=== PATIENT | male | born 1955 | race Caucasian/White ===

== ENCOUNTER 2020-07-17 13:53 | Inpatient (IN) | payer MEDICARE, SELFPAY ==
[~2020-07-17] VITALS: Ht 180.3 cm; Wt 115.7 kg
[2020-07-17 14:21] VITALS: BP 135/83
--- NOTE | 2020-07-17 14:21 | NUR ---
Patient to overflow tent.
--- NOTE | 2020-07-17 15:15 | NUR ---
KAYLA Salamanca is evaluating the patient.
[2020-07-17] MEDS ORDERED: AZITHROMYCIN 500 MG in DEXTROSE 5% 250 ML IV ONE (16:25)
[2020-07-17] MEDS ORDERED: DEXAMETHASONE 4 MG/ML VIAL IVP ONE (16:25)
[2020-07-17] MEDS ORDERED: cefTRIAXone 1,000 MG VIAL ONE (17:02)
[2020-07-17 17:11] LABS: BASOPHILS % (AUTO) 0.1 % (0.0-2.0); HEMATOCRIT 40.4 % (36-52); HEMOGLOBIN 14.1 g/dL (12.0-18.0); LYMPHOCYTES # (AUTO) 0.5 K/uL (2.0-11.5); LYMPHOCYTES % (AUTO) 6.3 % (20.5-51.1); MEAN CORPUSCULAR HEMOGLOBIN 31 pg (27-31); MEAN CORPUSCULAR HGB CONC 35 g/dL (33-37); MEAN CORPUSCULAR VOLUME 87.9 fL (80-94); MONOCYTES # (AUTO) 0.2 K/uL (0.8-1.0); MONOCYTES % (AUTO) 3.2 % (1.7-9.3); NEUTROPHILS # (AUTO) 6.8 K/uL (1.8-7.7); NEUTROPHILS % (AUTO) 90.4 % (42.2-75.2); PLATELET COUNT (AUTO) 206 K/uL (140-450); RED CELL DISTRIBUTION WIDTH 13.9 % (11.6-13.7); WHITE BLOOD COUNT (AUTO) 7.5 K/uL (4.8-10.8)
[2020-07-17 17:33] LABS: ALBUMIN 3.3 g/dL (3.4-5.0); ANION GAP 12.7 (8-16); CARBON DIOXIDE 27.1 mmol/L (21-32); POTASSIUM 3.8 mmol/L (3.5-5.1); TOTAL BILIRUBIN 0.9 mg/dL (0.0-1.0)
[2020-07-17] MEDS ORDERED: AZITHROMYCIN 500 MG INJ VIAL IV ONE (17:41)
[2020-07-17] MEDS ORDERED: MAGNESIUM OXIDE 400 MG TAB PO PRN (17:50)
[2020-07-17] MEDS ORDERED: ACETAMINOPHEN 325 MG TAB PO PRN (17:50)
[2020-07-17] MEDS ORDERED: POTASSIUM CHLORIDE 10 MEQ TABER PO PRN (17:50)
[2020-07-17] MEDS ORDERED: METOCLOPRAMIDE 10 MG/2 ML INJ VIAL IVP PRN (17:50)
[2020-07-17] MEDS ORDERED: PHARMACY TO DOSE MC PRN (17:55)
[2020-07-17] MEDS ORDERED: REMDESIVIR (EUA) 200 MG in NACL 0.9% 100 ML IV ONE (18:30)
[2020-07-17] MEDS ORDERED: remdesivir CLINICAL MONITORING 1 EA MISC MC PRN (18:30)
--- NOTE | 2020-07-17 19:30 | NUR ---
Patient will be admitted to care of CYRUS CHEEMA. Admited to M/S HOLD, AT 1751 HOURS. Belongings list completed.
--- NOTE | 2020-07-18 07:19 | NUR ---
PATIENT HAS BEEN SCREENED AND CATEGORIZED MODERATE NUTRITION RISK. PATIENT WILL BE SEEN WITHIN 3-5 DAYS OF ADMISSION. 07/20/20 - 07/22/20 SHIVAM GREEN MBA, RD
[2020-07-18] MEDS: ENOXAPARIN 40 MG/0.4 ML SYR SUBQ SCH (10:26)
[2020-07-18] MEDS: DEXAMETHASONE 4 MG TAB PO SCH (10:33)
--- NOTE | 2020-07-18 10:44 | NUR ---
Remdesevir not given last night to patient. Pharmacy made aware.
--- NOTE | 2020-07-18 11:30 | NUR ---
RECEIVED PATIENT FROM PREVIOUS SHIFT SITTING ON THE CHAIR, AWAKE,ALERT, BREATHING SPONTANEOUSLY WITH O2 AT 6L/MIN VIA NC, NOT IN DISTRESS NOTED. ADMITTED A CASE OF COVID POSITIVE UNDER DR. MURDOCK, CONTINUE MONITOR
--- NOTE | 2020-07-18 11:30 | NUR ---
SOCIAL WORK NOTE: Patient's Orientation Unable To Assess Information Provided By OPHELIA FOLEY - Comments SW WAS UNABLE TO MEET PATIENT AT BEDSIDE. SW COMPLETED ASSESSMENT WITH PATIENT'S . [employer], Realtionship and Phone Number OPHELIA CROWDER [phone] Healthcare Power of Senior [employer] Does Patient Have a POLST No Identifying Problems No Social Work Triggers Is A Social Work Consult Needed No Mandate Report Filed No Explanation Of Identifying Problems PATIENT IS A 64-YEAR-OLD MALE ADMITTED FOR COVID. PATIENT HAS PMHX OF DIABETES. NO HX OF SUBSTANCE ABUSE OR MENTAL HEALTH WAS REPORTED. Admitted From Home Pre-Admission Level Of Functioning Status Independent/Ambulatory Prior Resources/Services Used In Last 12 Months No Prior Resources Used Prior DME No Prior DME Used Dialysis Comments N/A Living Situation Lives With Family House Patient Had Caregiver No Home Support No Caregiver Issues Financial Issues No Known Financial Issue Referral To The Financial Counselor Needed No Factors/Needs No D/C Needs Identified Pt/Rep Participated In Discharge Plan Yes Patient/Family Agress With Discharge Plan Yes Discharge Plan Comments TENTATIVE DISCHARGE PLAN IS FOR PATIENT TO RETURN HOME. DC Plan Status Initiated
[2020-07-18 11:59] LABS: BASOPHILS % (AUTO) 0.2 % (0.0-2.0); HEMATOCRIT 40.9 % (36-52); HEMOGLOBIN 14.1 g/dL (12.0-18.0); LYMPHOCYTES # (AUTO) 0.5 K/uL (2.0-11.5); LYMPHOCYTES % (AUTO) 6.2 % (20.5-51.1); MEAN CORPUSCULAR HEMOGLOBIN 31 pg (27-31); MEAN CORPUSCULAR HGB CONC 34 g/dL (33-37); MEAN CORPUSCULAR VOLUME 88.7 fL (80-94); MONOCYTES # (AUTO) 0.3 K/uL (0.8-1.0); NEUTROPHILS # (AUTO) 7.3 K/uL (1.8-7.7); NEUTROPHILS % (AUTO) 89.6 % (42.2-75.2); PLATELET COUNT (AUTO) 225 K/uL (140-450); RED BLOOD CELL COUNT(AUTO) 4.61 MIL/uL (4.20-6.10); RED CELL DISTRIBUTION WIDTH 13.9 % (11.6-13.7); WHITE BLOOD COUNT (AUTO) 8.2 K/uL (4.8-10.8)
[2020-07-18 12:00] VITALS: BP 132/71
[2020-07-18 12:12] LABS: ALBUMIN 3.2 g/dL (3.4-5.0); CARBON DIOXIDE 28.2 mmol/L (21-32); POTASSIUM 4.2 mmol/L (3.5-5.1); TOTAL BILIRUBIN 0.8 mg/dL (0.0-1.0)
--- NOTE | 2020-07-18 12:23 | NUR ---
LUNCH SERVED AND ABLE TO FEED HIMSELF
--- NOTE | 2020-07-18 13:22 | NUR ---
OPHELIA CONTACTED AND UPDATE PATIENT STATUS
--- NOTE | 2020-07-18 16:16 | NUR ---
STILL ON O2 AT 12L/MIN VIA NC, NOT IN DISTRESS NOTED
[2020-07-18] MEDS ORDERED: REMDESIVIR (EUA) 100 MG in NACL 0.9% 100 ML IV SCH (17:00)
--- NOTE | 2020-07-18 17:15 | NUR ---
DUE REMDESIVIR IVPB NON ADMINISTER, PER THE CHARGE IS NOT SAFE TO GIVE THE SAID MEDICATION, NO ONE WILL MONITOR OUTSIDE THE TENT, PANTS MAKER AND PHARMACY MADE AWARE.
[2020-07-18 18:00] VITALS: BP 126/77
--- NOTE | 2020-07-18 19:30 | NUR ---
ENDORSED TO PRISONER CLASSIFICATION INTERVIEWER CHARGE NURSE IN STABLE CONDITION FOR CONTINUITY OF CARE
--- NOTE | 2020-07-18 23:02 | NUR ---
Patient is sitting quietly in tent. No distress noted. VSS
[2020-07-18] MEDS ORDERED: DEXTROSE 50% 50 ML SYR IVP PRN (23:15)
--- NOTE | 2020-07-19 01:00 | NUR ---
patient resting in chair quietly.
--- NOTE | 2020-07-19 03:00 | NUR ---
Patient is resting in chair with eyes closed. A/ox4; no distress noted.
--- NOTE | 2020-07-19 05:09 | NUR ---
179 mg/dl blood sugar/
--- NOTE | 2020-07-19 05:21 | NUR ---
Spoke with Blood bank/lab; convalescent plasma will be ready in an hour.
--- NOTE | 2020-07-19 06:18 | NUR ---
Convalescent plasma not ready.
[2020-07-19] MEDS: BLOOD GLUCOSE MONITORING 1 DEV DEV FS SCH ×4 (07:30→21:56)
--- NOTE | 2020-07-19 07:37 | NUR ---
INFLUENZA A+B; NOVEL; AND MRSA TAKEN TO LAB
--- NOTE | 2020-07-19 07:43 | NUR ---
Patient will be admitted to care of Dr. Vazquez. Admited to Med/Surg. Will go to room 105-A. Belongings list completed. Report to Falguni MANZANARES.
[2020-07-19] MEDS: ALBUTEROL SULFATE/IPRATROPIU 3 ML SOL IH SCH ×2 (08:04→19:00)
--- NOTE | 2020-07-19 08:10 | NUR ---
Patient admitted to room 105A from ED via wheelchair. Received report from ED nurse Morenita. Patient is aaox 4, respirations even & nonlabored on O2 @ 8Lpm. Pt able to ambulate from wheelchair to bed with steady gait. Oriented to room and unit, able to demonstrate understanding of teachings. Call light placed within reach.
[2020-07-19] MEDS: DEXAMETHASONE 4 MG TAB PO SCH (08:25)
[2020-07-19] MEDS: ENOXAPARIN 40 MG/0.4 ML SYR SUBQ SCH (08:26)
[2020-07-19 09:00] VITALS: BP 140/86
[2020-07-19 10:42] LABS: BASOPHILS % (AUTO) 0.1 % (0.0-2.0); HEMATOCRIT 39.4 % (36-52); HEMOGLOBIN 13.8 g/dL (12.0-18.0); LYMPHOCYTES # (AUTO) 0.6 K/uL (2.0-11.5); LYMPHOCYTES % (AUTO) 8.6 % (20.5-51.1); MEAN CORPUSCULAR HEMOGLOBIN 31 pg (27-31); MEAN CORPUSCULAR HGB CONC 35 g/dL (33-37); MEAN CORPUSCULAR VOLUME 88.3 fL (80-94); MONOCYTES # (AUTO) 0.4 K/uL (0.8-1.0); MONOCYTES % (AUTO) 5.8 % (1.7-9.3); NEUTROPHILS # (AUTO) 5.7 K/uL (1.8-7.7); NEUTROPHILS % (AUTO) 85.5 % (42.2-75.2); PLATELET COUNT (AUTO) 258 K/uL (140-450); RED BLOOD CELL COUNT(AUTO) 4.46 MIL/uL (4.20-6.10); RED CELL DISTRIBUTION WIDTH 13.8 % (11.6-13.7); WHITE BLOOD COUNT (AUTO) 6.6 K/uL (4.8-10.8)
[2020-07-19 11:12] LABS: ANION GAP 10.4 (8-16); CARBON DIOXIDE 29.6 mmol/L (21-32); TOTAL BILIRUBIN 0.8 mg/dL (0.0-1.0)
[2020-07-19] MEDS: INSULIN LISPRO SLIDING SCALE 100 UNITS/ML VIAL SUBQ PRN ×3 (11:48→22:00)
[2020-07-19] MEDS ORDERED: remdesivir CLINICAL MONITORING 1 EA MISC MC PRN ×2 (11:55→13:00)
[2020-07-19] MEDS ORDERED: METF-430 PO (12:55)
[2020-07-19] MEDS ORDERED: TRI48 PO (12:55)
[2020-07-19] MEDS ORDERED: ATOR20TA PO (12:55)
[2020-07-19] MEDS ORDERED: BENA20TA PO (12:55)
[2020-07-19] MEDS ORDERED: LIRA6SOL SC (12:55)
[2020-07-19] MEDS ORDERED: ASPI-1822 PO (12:55)
[2020-07-19] MEDS ORDERED: REMDESIVIR (EUA) 200 MG in NACL 0.9% 100 ML IV SCH (13:00)
--- NOTE | 2020-07-19 16:05 | NUR ---
Initiated convalescent plasma transfusion @ 50ml/hr. Patient resting in bed in high hawkins's position, no signs of distress, respirations even & nonlabored on O2 @ 7Lpm via n/c. Vital signs: 130/85, P 99, RR 18, T 98.9F. RN remains at bedside for continuous monitoring.
--- NOTE | 2020-07-19 16:11 | NUR ---
Patient admitted to room 105A from ED via wheelchair. Received report from ED nurse Morenita. Patient is aaox 4, respirations even & nonlabored on O2 @ 8Lpm. Pt able to ambulate from wheelchair to bed with steady gait. Oriented to room and unit, able to demonstrate understanding of teachings. Call light placed within reach. Addendum: 07/19/20 at 1759 by Ayah Lowe RN Wrong time input. Pls omit above note.
--- NOTE | 2020-07-19 16:20 | NUR ---
No signs of transfusion reaction noted. Plasma infusion rate increased to 120ml/hr. No signs of complications.
--- NOTE | 2020-07-19 17:40 | NUR ---
Completed convalescent plasma transfusion. No transfusion reactions noted. Pt resting in bed, no signs of distress, respirations even & nonlabored on O2 @ 8Lpm via n/c.
[2020-07-19] MEDS: BUDESONIDE 0.5 MG/2 ML NEBU INH SCH (19:30)
[2020-07-19 20:00] VITALS: BP 129/72
--- NOTE | 2020-07-19 20:00 | NUR ---
A,A&OX4.RESP.UNLABORED W/O2.SL.PATENT.CALL LIGHT IN REACH.CONDITION STABLE.NO DISTRESS NOTED NOW.
[2020-07-20] MEDS: ALBUTEROL SULFATE/IPRATROPIU 3 ML SOL IH SCH ×4 (01:00→19:45)
[2020-07-20 04:00] VITALS: BP 133/87
[2020-07-20] MEDS: BUDESONIDE 0.5 MG/2 ML NEBU INH SCH ×2 (07:30→19:45)
[2020-07-20 08:00] VITALS: BP 113/71
[2020-07-20] MEDS: BLOOD GLUCOSE MONITORING 1 DEV DEV FS SCH ×4 (08:09→21:00)
--- NOTE | 2020-07-20 08:15 | NUR ---
SLEPT WELL.NO DISTRESS NOTED.RESP.UNLABORED W/O2.KR=902.NO COVERAGE NEEDED.
[2020-07-20] MEDS: ENOXAPARIN 40 MG/0.4 ML SYR SUBQ SCH (09:18)
[2020-07-20] MEDS: DEXAMETHASONE 4 MG TAB PO SCH (09:18)
--- NOTE | 2020-07-20 09:19 | NUR ---
SCHEDULED MEDICATIONS DUE GIVEN. WILL CONTINUE TO MONITOR.
[2020-07-20 10:09] LABS: ALBUMIN 2.8 g/dL (3.4-5.0); ANION GAP 8.3 (8-16); CARBON DIOXIDE 30.7 mmol/L (21-32); CREATININE 0.9 mg/dL (0.6-1.3); TOTAL BILIRUBIN 0.7 mg/dL (0.0-1.0)
[2020-07-20 10:11] LABS: BASOPHILS % (AUTO) 0.6 % (0.0-2.0); EOSINOPHILS % (AUTO) 0.1 % (0.0-4.0); HEMATOCRIT 38.4 % (36-52); HEMOGLOBIN 13.3 g/dL (12.0-18.0); LYMPHOCYTES # (AUTO) 0.9 K/uL (2.0-11.5); LYMPHOCYTES % (AUTO) 15.6 % (20.5-51.1); MEAN CORPUSCULAR HEMOGLOBIN 31 pg (27-31); MEAN CORPUSCULAR HGB CONC 35 g/dL (33-37); MEAN CORPUSCULAR VOLUME 89.7 fL (80-94); MONOCYTES # (AUTO) 0.4 K/uL (0.8-1.0); MONOCYTES % (AUTO) 6.2 % (1.7-9.3); NEUTROPHILS # (AUTO) 4.6 K/uL (1.8-7.7); NEUTROPHILS % (AUTO) 77.5 % (42.2-75.2); PLATELET COUNT (AUTO) 294 K/uL (140-450); RED BLOOD CELL COUNT(AUTO) 4.28 MIL/uL (4.20-6.10); RED CELL DISTRIBUTION WIDTH 13.7 % (11.6-13.7)
[2020-07-20] MEDS: REMDESIVIR (EUA) 100 MG in NACL 0.9% 100 ML IV SCH (13:00)
[2020-07-20] MEDS: INSULIN LISPRO SLIDING SCALE 100 UNITS/ML VIAL SUBQ PRN ×3 (13:33→22:53)
--- NOTE | 2020-07-20 14:19 | NUR ---
SCHEDULED MEDICATIONS DUE GIVEN. WILL CONTINUE TO MONITOR.
[2020-07-20] MEDS: POLYETHYLENE GLYCOL 17 GM/PKT PO PRN (14:49)
[2020-07-20 16:00] VITALS: BP 123/80
--- NOTE | 2020-07-20 16:54 | NUR ---
SCHEDULED MEDICATIONS DUE GIVEN. WILL CONTINUE TO MONITOR.
--- NOTE | 2020-07-20 19:16 | NUR ---
GAVE REPORT TO STAVE LOG RIPSAW OPERATOR NURSE FOR CONTINUITY OF CARE. PATIENT IN STABLE CONDITION.
--- NOTE | 2020-07-20 19:35 | NUR ---
AWAKE,ALERT AND ORIENTED.RESP.UNLABORED.CALL LIGHT IN REACH.LUNGS DIMINISHED.NO DISTRESS NOTED NOW.
[2020-07-20 20:00] VITALS: BP 134/76
[2020-07-21 04:00] VITALS: BP 129/75
[2020-07-21] MEDS: BLOOD GLUCOSE MONITORING 1 DEV DEV FS SCH ×4 (04:40→23:06)
--- NOTE | 2020-07-21 07:00 | NUR ---
SLEPT WELL.YE=570.NO COVERAGE NEEDED.CONDITION STABLE.
[2020-07-21] MEDS: BUDESONIDE 0.5 MG/2 ML NEBU INH SCH ×2 (07:30→19:30)
[2020-07-21 08:00] VITALS: BP 146/71
[2020-07-21 08:34] LABS: BASOPHILS % (AUTO) 0.3 % (0.0-2.0); EOSINOPHILS % (AUTO) 0.4 % (0.0-4.0); HEMATOCRIT 39.3 % (36-52); HEMOGLOBIN 13.5 g/dL (12.0-18.0); LYMPHOCYTES # (AUTO) 0.9 K/uL (2.0-11.5); LYMPHOCYTES % (AUTO) 12.7 % (20.5-51.1); MEAN CORPUSCULAR HEMOGLOBIN 31 pg (27-31); MEAN CORPUSCULAR HGB CONC 34 g/dL (33-37); MEAN CORPUSCULAR VOLUME 88.8 fL (80-94); MONOCYTES # (AUTO) 0.3 K/uL (0.8-1.0); MONOCYTES % (AUTO) 4.4 % (1.7-9.3); NEUTROPHILS # (AUTO) 5.7 K/uL (1.8-7.7); NEUTROPHILS % (AUTO) 82.2 % (42.2-75.2); PLATELET COUNT (AUTO) 322 K/uL (140-450); RED BLOOD CELL COUNT(AUTO) 4.43 MIL/uL (4.20-6.10); RED CELL DISTRIBUTION WIDTH 13.6 % (11.6-13.7)
[2020-07-21] MEDS: DEXAMETHASONE 4 MG TAB PO SCH (08:57)
[2020-07-21] MEDS: ENOXAPARIN 40 MG/0.4 ML SYR SUBQ SCH (08:58)
--- NOTE | 2020-07-21 09:02 | NUR ---
SCHEDULED MEDICATIONS GIVEN, EDUCATION PROVIDED. VERBALIZED UNDERSTANDING. DENIES SOB. O2 SAT 89-90% WITH 10L NC WITH HUMIDIFIER. SAFETY MEASURES IN PLACE, CALL LIGHT WITHIN REACH. WILL CONTINUE TO MONITOR.
[2020-07-21 09:27] LABS: ALBUMIN 2.7 g/dL (3.4-5.0); ANION GAP 9.8 (8-16); CREATININE 0.9 mg/dL (0.6-1.3); POTASSIUM 3.8 mmol/L (3.5-5.1); TOTAL BILIRUBIN 0.8 mg/dL (0.0-1.0)
--- NOTE | 2020-07-21 10:17 | NUR ---
PT AWAKE. SITTING IN BED, WITH OCCASIONAL DRY COUGH. DENIES DISCOMFORT. ENCOURAGED PATIENT TO TAKE DEEP BREATH. VERBALIZED UNDERSTANDING. WILL CONTINUE TO MONITOR.
[2020-07-21] MEDS: INSULIN LISPRO SLIDING SCALE 100 UNITS/ML VIAL SUBQ PRN ×3 (12:09→23:13)
--- NOTE | 2020-07-21 12:14 | NUR ---
4 UNITS OF HUMALOG GIVEN FOR BLOOD GLUCOSE LEVEL 226. EDUCATION PROVIDED. INFORMED PATIENT WILL ADMINISTER SCHEDULED REMDESIVIR WHEN IT'S AVAILABLE. NO ACUTE DISTRESS NOTED, WILL CONTINUE TO MONITOR.
[2020-07-21] MEDS: ALBUTEROL SULFATE/IPRATROPIU 3 ML SOL IH SCH ×2 (13:00→19:00)
--- NOTE | 2020-07-21 13:43 | NUR ---
DC PLANNIN YRS OLD MALE PATIENT WAS ADMITTED FROM HOME WITH A DX OF COVID . PCR COVID TEST POSITIVE ON 10L NC SATING 90%. STARTED COVID PROTOCOL DAY #4 OF REMDESIVER , RECEIVED CONVALESCENT PLASMA. CONSULTED WITH ID DR SCHWAB. DC PLAN TO WEAN OF FROM O2 AND DC HOME WHEN STABLE. CM TO FOLLOW Addendum: 07/26/20 at 1231 by Nadege Roman RN DC PLANNING: PT IS STILL ON 13L OXYMIZER SATING 95% SEEN BY ID CONTINUE CURRENT TREATMENT AND TRY TO WEAN OFF O2. DISCUSSED WITH DR BANKS FOR THE RECOMMENDATION FOR [facility] EVAL PER MD TO TRY TO WEAN HIM OFF FIRST .CM TO FOLLOW. Addendum: 07/28/20 at 1651 by Nadege Roman RN DC PLANNING: ON O2 10L/NC SATING 90% DC PLAN TO WEAN OFF O2 TO 5L/NC AND TO GO HOME WITH HOME O2. CM TO FOLLOW Addendum: 07/30/20 at 0953 by Nadege Roman RN DC PLANNING: PT IS STILL ON 10L /NC SATING 90% ID AND PULMO FOLLOWING, PER DR BANKS NOT A CANDIDATE FOR LTAC. DC PLAN TO WEAN OFF OXYGEN TO 5-6L AND SEND HIM HOME WITH HOME O2. CM TO FOLLOW Addendum: 07/31/20 at 1552 by Ayde Stern CM REMAINS ON 02 AT 8 LPM/NC, O2 SAT 92%. PER JUANY - WEAN DOWN 02 TOLERATED. Addendum: 07/31/20 at 1614 by Roxy Avila CM MALORIE NOE: RECEIVED ORDER FOR HOME O2 FAXED TO [facility]. Addendum: 08/01/20 at 921 by Roxy Avila CM MALORIE NOE: FOLLOWED UP WITH [facility] [phone] ext [phone]. THEY ASKED THAT I FAX THEM THE ORDER TO [phone] WILL FOLLOW UP Addendum: 08/01/20 at 0924 by Roxy Avila CM DC MEDIA LIBRARIAN: FOLLOWED UP WITH SHANNAN OLMEDO AT [facility]. HE ASKED THAT I RE-SEND THE ORDER FOR HOME O2 TO HIM. RE-FAXED WILL FOLLOW UP. Addendum: 08/01/20 at 1243 by Roxy Avila CM DC MEDIA LIBRARIAN: FOLLOWED UP WITH SHANNAN OLMEDO REGARDING HOME O2 HE WILL CALL ME BACK BECAUSE HIS COORDINATOR IS ON LUNCH Addendum: 08/01/20 at 1422 by Roxy Avila CM DC MEDIA LIBRARIAN: RECEIVED A CALL BACK FROM SHARA HE STATED THAT HIS COORDINATOR SENT AUTH TO [facility]. FOLLOWED UP WITH [facility] [phone] THEY ARE PROCESSING THIS ORDER NO AVAILABLE ETA AT THIS TIME. Addendum: 08/01/20 at 1556 by Roxy Avila CM MALORIE NOE: SPOKE TO [facility] [phone] OPT 5. HOME O2 WILL BE DELIVERED TO PATIENTS HOME BY 7:15 PM.
[2020-07-21] MEDS: REMDESIVIR (EUA) 100 MG in NACL 0.9% 100 ML IV SCH (13:48)
--- NOTE | 2020-07-21 13:53 | NUR ---
REMDESIVIR GIVEN VIA IVPB. EDUCATION PROVIDED. SAFETY MEASURES IN PLACE. WILL CONTINUE TO MONITOR.
--- NOTE | 2020-07-21 14:10 | NUR ---
+ covid result received from lab. Copy given to infection control
[2020-07-21 16:00] VITALS: BP 110/62
--- NOTE | 2020-07-21 16:48 | NUR ---
6 UNITS OF HUMALOG GIVEN FOR BLOOD GLUCOSE LEVEL 271. EDUCATION PROVIDED. O2 SAT 89-93% WITH 10 L NC WITH HUMIDIFIER. WILL CONTINUE TO MONITOR.
--- NOTE | 2020-07-21 18:06 | NUR ---
INCENTIVE SPIROMETER PROVIDED. INSTRUCTION PROVIDED. PATIENT ABLE TO REACH 2000ML VOLUME. ENCOURAGED PATIENT TO DO 10 TIMES PER HOUR WHILE HE'S AWAKE. PATIENT VERBALIZED UNDERSTANDING. O2 SAT 93% WITH 10L NC WITH HUMIDIFIER. NO ACUTE RESPIRATORY DISTRESS NOTED. SAFETY MEASURES IN PLACE, WILL CONTINUE TO MONITOR.
--- NOTE | 2020-07-21 19:17 | NUR ---
ENDORSED PATIENT TO FINANCE ADMINISTRATOR RN FOR CONTINUITY OF CARE. PATIENT ON 10L/MIN OXYGEN VIA NC WITH HUMIDIFIER, IN STABLE CONDITION.
[2020-07-21 20:00] VITALS: BP 148/58
[2020-07-22] MEDS: ALBUTEROL SULFATE/IPRATROPIU 3 ML SOL IH SCH ×4 (01:00→19:00)
[2020-07-22 04:00] VITALS: BP 123/64
[2020-07-22] MEDS: BUDESONIDE 0.5 MG/2 ML NEBU INH SCH ×2 (07:30→19:30)
[2020-07-22] MEDS: BLOOD GLUCOSE MONITORING 1 DEV DEV FS SCH ×4 (07:57→21:35)
[2020-07-22 08:00] VITALS: BP 129/65
[2020-07-22] MEDS: DEXAMETHASONE 4 MG TAB PO SCH (08:58)
[2020-07-22] MEDS: ENOXAPARIN 40 MG/0.4 ML SYR SUBQ SCH (08:59)
[2020-07-22 10:13] LABS: BASOPHILS % (AUTO) 0.2 % (0.0-2.0); EOSINOPHILS # (AUTO) 0.1 K/uL (0-0.4); HEMATOCRIT 41.1 % (36-52); HEMOGLOBIN 14.6 g/dL (12.0-18.0); LYMPHOCYTES # (AUTO) 0.8 K/uL (2.0-11.5); LYMPHOCYTES % (AUTO) 8.8 % (20.5-51.1); MEAN CORPUSCULAR HEMOGLOBIN 31 pg (27-31); MEAN CORPUSCULAR HGB CONC 36 g/dL (33-37); MEAN CORPUSCULAR VOLUME 88.4 fL (80-94); MONOCYTES # (AUTO) 0.2 K/uL (0.8-1.0); MONOCYTES % (AUTO) 2.4 % (1.7-9.3); NEUTROPHILS # (AUTO) 8.3 K/uL (1.8-7.7); NEUTROPHILS % (AUTO) 87.6 % (42.2-75.2); PLATELET COUNT (AUTO) 330 K/uL (140-450); RED BLOOD CELL COUNT(AUTO) 4.65 MIL/uL (4.20-6.10); RED CELL DISTRIBUTION WIDTH 13.7 % (11.6-13.7); WHITE BLOOD COUNT (AUTO) 9.5 K/uL (4.8-10.8)
[2020-07-22 10:31] LABS: ALBUMIN 2.8 g/dL (3.4-5.0); ANION GAP 13.4 (8-16); CARBON DIOXIDE 28.6 mmol/L (21-32); CREATININE 0.9 mg/dL (0.6-1.3); TOTAL BILIRUBIN 0.9 mg/dL (0.0-1.0)
[2020-07-22] MEDS: INSULIN LISPRO SLIDING SCALE 100 UNITS/ML VIAL SUBQ PRN ×2 (12:23→17:19)
[2020-07-22] MEDS: REMDESIVIR (EUA) 100 MG in NACL 0.9% 100 ML IV SCH (12:27)
--- NOTE | 2020-07-22 13:36 | NUR ---
07/22/20 RD INITIAL ASSESSMENT COMPLETED PLEASE REFER TO NUTRITION ASSESSMENT UNDER CARE ACTIVITY FOR ESTIMATED NUTRITIONAL NEEDS. 1. RECOMMEND CCHO 60 GM DIET 2. ENCOURAGE PO INTAKE 3. RD TO FOLLOW-UP 3-5 DAYS, MODERATE RISK KATHERINE WATKINS RD
[2020-07-22 16:00] VITALS: BP 125/68
[2020-07-22] MEDS: POLYETHYLENE GLYCOL 17 GM/PKT PO PRN (17:18)
--- NOTE | 2020-07-22 19:30 | NUR ---
REPORT GIVEN TO CERTIFIED FIRST ASSISTANT RN. PT RT LATERAL RESTING, O2 SAT ON 14L HUMIDIFIED NC 92%.
--- NOTE | 2020-07-22 19:55 | NUR ---
RECEIVED REPORT FROM SIMONA/RN, PT A&O X4, VERBAL, AMBULATORY, NO DISTRESS WITH SOB ON HUMIDIFIER NC @14L. IVP INTACT.
[2020-07-22 20:00] VITALS: BP 139/75
[2020-07-23] MEDS: ALBUTEROL SULFATE/IPRATROPIU 3 ML SOL IH SCH ×3 (01:00→12:36)
[2020-07-23 04:00] VITALS: BP 112/69
--- NOTE | 2020-07-23 06:31 | NUR ---
PT ASLEEP ON BED, A&O X4, VERBAL, WITH SOB, NO DISTRESS ON O2 WITH HUMIDIFIER, ADVISED TO POSITION ON THE LT LATERAL SIDE & SUPINE DUE TO DESATURATION, O2 SAT 91%, NO C/O PAIN AT THIS TIME, VSS. IVP INTACT W/O INFILTRATION.
[2020-07-23] MEDS: BLOOD GLUCOSE MONITORING 1 DEV DEV FS SCH ×4 (06:43→20:47)
[2020-07-23] MEDS: BUDESONIDE 0.5 MG/2 ML NEBU INH SCH (07:05)
--- NOTE | 2020-07-23 07:20 | NUR ---
REPORT GIVEN TO SIMONA/RN
[2020-07-23 08:00] VITALS: BP 107/67
[2020-07-23] MEDS: DEXAMETHASONE 4 MG TAB PO SCH (08:39)
[2020-07-23] MEDS: ENOXAPARIN 40 MG/0.4 ML SYR SUBQ SCH (08:40)
[2020-07-23 08:57] LABS: BASOPHILS % (AUTO) 0.4 % (0.0-2.0); EOSINOPHILS # (AUTO) 0.1 K/uL (0-0.4); EOSINOPHILS % (AUTO) 1.6 % (0.0-4.0); HEMATOCRIT 41.4 % (36-52); HEMOGLOBIN 14.5 g/dL (12.0-18.0); LYMPHOCYTES # (AUTO) 0.6 K/uL (2.0-11.5); LYMPHOCYTES % (AUTO) 6.7 % (20.5-51.1); MEAN CORPUSCULAR HEMOGLOBIN 31 pg (27-31); MEAN CORPUSCULAR HGB CONC 35 g/dL (33-37); MONOCYTES # (AUTO) 0.2 K/uL (0.8-1.0); MONOCYTES % (AUTO) 2.5 % (1.7-9.3); NEUTROPHILS # (AUTO) 8.2 K/uL (1.8-7.7); NEUTROPHILS % (AUTO) 88.8 % (42.2-75.2); PLATELET COUNT (AUTO) 375 K/uL (140-450); RED BLOOD CELL COUNT(AUTO) 4.65 MIL/uL (4.20-6.10); RED CELL DISTRIBUTION WIDTH 13.5 % (11.6-13.7); WHITE BLOOD COUNT (AUTO) 9.2 K/uL (4.8-10.8)
[2020-07-23 09:02] LABS: ALBUMIN 2.7 g/dL (3.4-5.0); ANION GAP 10.8 (8-16); CARBON DIOXIDE 29.3 mmol/L (21-32); POTASSIUM 4.1 mmol/L (3.5-5.1); TOTAL BILIRUBIN 0.9 mg/dL (0.0-1.0)
[2020-07-23] MEDS: REMDESIVIR (EUA) 100 MG in NACL 0.9% 100 ML IV SCH (12:37)
[2020-07-23] MEDS: INSULIN LISPRO SLIDING SCALE 100 UNITS/ML VIAL SUBQ PRN ×3 (12:50→20:47)
[2020-07-23 16:00] VITALS: BP 104/62
--- NOTE | 2020-07-23 18:55 | NUR ---
PATIENT SPILLED TEA ON BEDSHEETS, NEW BEDSHEETS GIVEN. PT ACCIDENTALLY PULLED OUT IV. IV CANNULA INTACT, MINIMAL BLEEDING NOTED. WILL ENDORSE TO FLAT SPRING ASSEMBLER NURSE.
--- NOTE | 2020-07-23 19:23 | NUR ---
REPORT GIVEN TO FUEL TECHNICIAN RN.
--- NOTE | 2020-07-23 19:25 | NUR ---
RECEIVED PATIENT FROM AM SHIFT NURSE FOR CONTINUITY OF CARE. ABLE TO MAKE NEEDS KNOWN. RESPIRATIONS EVEN, UNLABORED. CONTINUES ON O2 14L VIA NC WITH HUMIDIFIER. O2SAT 93%. SKIN WARM, DRY. NO C/O PAIN. NO S/S ACUTE DISTRESS. ABDOMEN SOFT, NONTENDER, NONDISTENDED. BOWEL SOUNDS ACTIVE X4 QUADRANTS. PATIENT IS CONTINENT OF B/B. PLAN OF CARE DISCUSSED. ISOLATION PRECAUTIONS OBSERVED. CALL LIGHT WITHIN REACH.
[2020-07-23 20:00] VITALS: BP 122/60
--- NOTE | 2020-07-23 20:16 | NUR ---
NEW IV STARTED TO LEFT HAND 22G USING ASEPTIC TECHNIQUE. NO DISCOMFORT FROM PATIENT.
--- NOTE | 2020-07-23 21:30 | NUR ---
DUE MEDS GIVEN. PATIENT RESTING COMFORTABLY IN BED. NO S/S ACUTE DISTRESS. CALL LIGHT WITHIN REACH. ISOLATION PRECAUTIONS OBSERVED BY ALL STAFF.
--- NOTE | 2020-07-23 23:00 | NUR ---
PATIENT IS ASLEEP. NO S/S ACUTE DISTRESS. CALL LIGHT WITHIN REACH. ISOLATION PRECAUTIONS OBSERVED BY ALL STAFF.
--- NOTE | 2020-07-24 01:28 | NUR ---
MADE ROUNDS. PATIENT IS ASLEEP. NO S/S ACUTE DISTRESS. CALL LIGHT WITHIN REACH. ISOLATION PRECAUTIONS OBSERVED BY ALL STAFF.
--- NOTE | 2020-07-24 03:30 | NUR ---
PATIENT IS ASLEEP. O2 SAT 88%. ENCOURAGED PATIENT TO PRONE BUT PATIENT REFUSED AND PREFERS A SIDELYING POSITION. RISK AND BENEFITS EXPLAINED. CALL LIGHT WITHIN REACH IN REACH AT ALL TIMES. ISOLATION PRECAUTIONS OBSERVED BY ALL STAFF. SAFETY PRECAUTIONS IN PLACE.
[2020-07-24 04:00] VITALS: BP 105/63
--- NOTE | 2020-07-24 05:30 | NUR ---
PATIENT ASLEEP. O2SAT 85%. CALL LIGHT WITHIN REACH IN REACH AT ALL TIMES. ISOLATION PRECAUTIONS OBSERVED BY ALL STAFF.
[2020-07-24] MEDS: BLOOD GLUCOSE MONITORING 1 DEV DEV FS SCH ×4 (06:30→21:00)
[2020-07-24] MEDS: INSULIN LISPRO SLIDING SCALE 100 UNITS/ML VIAL SUBQ PRN ×3 (06:31→17:46)
--- NOTE | 2020-07-24 07:31 | NUR ---
ENDORSED TO AM SHIFT NURSE FOR CONTINUITY OF CARE.
[2020-07-24 08:00] LABS: BASOPHILS % (AUTO) 0.1 % (0.0-2.0); EOSINOPHILS # (AUTO) 0.2 K/uL (0-0.4); EOSINOPHILS % (AUTO) 1.8 % (0.0-4.0); HEMATOCRIT 42.3 % (36-52); HEMOGLOBIN 14.9 g/dL (12.0-18.0); LYMPHOCYTES # (AUTO) 0.9 K/uL (2.0-11.5); LYMPHOCYTES % (AUTO) 9.3 % (20.5-51.1); MEAN CORPUSCULAR HEMOGLOBIN 31 pg (27-31); MEAN CORPUSCULAR HGB CONC 35 g/dL (33-37); MEAN CORPUSCULAR VOLUME 88.8 fL (80-94); MONOCYTES # (AUTO) 0.2 K/uL (0.8-1.0); MONOCYTES % (AUTO) 2.5 % (1.7-9.3); NEUTROPHILS # (AUTO) 7.9 K/uL (1.8-7.7); NEUTROPHILS % (AUTO) 86.3 % (42.2-75.2); PLATELET COUNT (AUTO) 416 K/uL (140-450); RED BLOOD CELL COUNT(AUTO) 4.77 MIL/uL (4.20-6.10); RED CELL DISTRIBUTION WIDTH 13.5 % (11.6-13.7); WHITE BLOOD COUNT (AUTO) 9.2 K/uL (4.8-10.8)
[2020-07-24 08:21] LABS: ALBUMIN 2.8 g/dL (3.4-5.0); ANION GAP 11.4 (8-16); CARBON DIOXIDE 29.4 mmol/L (21-32); CREATININE 0.9 mg/dL (0.6-1.3); POTASSIUM 3.8 mmol/L (3.5-5.1); TOTAL BILIRUBIN 0.7 mg/dL (0.0-1.0)
[2020-07-24] MEDS: ENOXAPARIN 40 MG/0.4 ML SYR SUBQ SCH (10:19)
[2020-07-24] MEDS: DEXAMETHASONE 4 MG TAB PO SCH (10:20)
[2020-07-24] MEDS: FENOFIBRATE 48 MG TAB PO SCH (10:21)
[2020-07-24] MEDS: ATORVASTATIN 20 MG TAB PO SCH (10:21)
--- NOTE | 2020-07-24 10:28 | NUR ---
ADMINISTERED PRESCRIBED MEDS PER MD ORDER. PATIENT TOLERATED WELL. MEDICATION EDUCATION PROVIDED. PATIENT VERBALIZED UNDERSTANDING. SAFETY MEASURES IN PLACE. WILL CONT TO MONITOR.
[2020-07-24] MEDS ORDERED: bisacodyL 5 MG TABEC PO SCH (11:15)
[2020-07-24] MEDS ORDERED: guaiFENesin 20 MG/ML UDC PO PRN (11:15)
[2020-07-24] MEDS ORDERED: BENZONATATE 100 MG CAPLF PO PRN (11:15)
[2020-07-24] MEDS: DOCUSATE SODIUM 100 MG GELCAP PO PRN (11:45)
--- NOTE | 2020-07-24 11:50 | NUR ---
ADMINISTERED PRN COLACE FOR CONSTIPATION X 5 DAYS. PATIENT TOLERATED WELL. SAFETY MEASURES IN PLACE. WILL CONT TO MONITOR.
[2020-07-24 12:00] VITALS: BP 109/69
--- NOTE | 2020-07-24 13:00 | NUR ---
ADMINISTERED 4 UNITS PRN INSULIN FOR BG 221. PATIENT TOLERATED WELL. LUNCH TRAY IS AT BEDSIDE. PATIENT TALKING ON CELL PHONE. SAFETY MEASURES IN PLACE. WILL CONT TO MONITOR.
--- NOTE | 2020-07-24 15:08 | NUR ---
PATIENT COMPLAINED OF COUGH. ADMINISTERED PRN ROBITUSSIN. PATIENT TOLERATED WELL. SAFETY MEASURES IN PLACE. WILL CONT TO MONITOR.
--- NOTE | 2020-07-24 17:48 | NUR ---
ADMINISTERED 8 UNITS PRN INSULIN FOR BG 301. PATIENT TOLERATED WELL. GAVE PATIENT REQ ITEMS OF TISSUE AND A COMB. SAFETY MEASURES IN PLACE. WILL CONT TO MONITOR.
[2020-07-24 20:00] VITALS: BP 105/66
[2020-07-25 04:00] VITALS: BP 133/79
[2020-07-25] MEDS: BLOOD GLUCOSE MONITORING 1 DEV DEV FS SCH ×4 (06:00→21:00)
--- NOTE | 2020-07-25 08:19 | NUR ---
RECEIVED PATIENT IN BED RESTING COMFORTABLY, PRESENTS CALM AND COOPERATIVE, ABLE TO EXPRESS NEEDS. NO C/O PAIN OR DISCOMFORT. RESPIRATIONS ARE NON-LABORED. SKIN IS CLEAN, WARM AND DRY TO TOUCH. IV ACCESS IS PATENT, DRY AND INTACT. BED IS LOCKED IN LOWEST POSITION, CALL LIGHT IN REACH. NURSE WILL CONTINUE CARE AND MONITOR FOR CHANGES IN STATUS.
[2020-07-25 08:42] LABS: BASOPHILS % (AUTO) 0.3 % (0.0-2.0); EOSINOPHILS # (AUTO) 0.1 K/uL (0-0.4); EOSINOPHILS % (AUTO) 1.8 % (0.0-4.0); HEMATOCRIT 39.6 % (36-52); HEMOGLOBIN 13.8 g/dL (12.0-18.0); LYMPHOCYTES # (AUTO) 0.5 K/uL (2.0-11.5); LYMPHOCYTES % (AUTO) 8.1 % (20.5-51.1); MEAN CORPUSCULAR HEMOGLOBIN 31 pg (27-31); MEAN CORPUSCULAR HGB CONC 35 g/dL (33-37); MEAN CORPUSCULAR VOLUME 89.4 fL (80-94); MONOCYTES # (AUTO) 0.2 K/uL (0.8-1.0); MONOCYTES % (AUTO) 2.7 % (1.7-9.3); NEUTROPHILS # (AUTO) 5.9 K/uL (1.8-7.7); NEUTROPHILS % (AUTO) 87.1 % (42.2-75.2); PLATELET COUNT (AUTO) 375 K/uL (140-450); RED BLOOD CELL COUNT(AUTO) 4.43 MIL/uL (4.20-6.10); RED CELL DISTRIBUTION WIDTH 13.6 % (11.6-13.7); WHITE BLOOD COUNT (AUTO) 6.8 K/uL (4.8-10.8)
[2020-07-25] MEDS: FENOFIBRATE 48 MG TAB PO SCH (09:32)
[2020-07-25] MEDS: ATORVASTATIN 20 MG TAB PO SCH (09:32)
[2020-07-25] MEDS: DEXAMETHASONE 4 MG TAB PO SCH (09:32)
[2020-07-25] MEDS: ENOXAPARIN 40 MG/0.4 ML SYR SUBQ SCH (09:34)
[2020-07-25 10:14] LABS: ALBUMIN 2.4 g/dL (3.4-5.0); ANION GAP 12.2 (8-16); CARBON DIOXIDE 27.1 mmol/L (21-32); CREATININE 0.8 mg/dL (0.6-1.3); POTASSIUM 4.3 mmol/L (3.5-5.1); TOTAL BILIRUBIN 0.7 mg/dL (0.0-1.0)
--- NOTE | 2020-07-25 13:06 | NUR ---
PATIENT RESTING COMFORTABLY, NO C/O PAIN OR DISCOMFORT. RESPIRATIONS ARE NON-LABORED. SKIN IS CLEAN, WARM AND DRY TO TOUCH. IV ACCESS IS PATENT, DRY AND INTACT. BED IS LOCKED IN LOWEST POSITION, CALL LIGHT IN REACH. NURSE WILL CONTINUE TO MONITOR FOR CHANGES IN STATUS.
[2020-07-25] MEDS: INSULIN LISPRO SLIDING SCALE 100 UNITS/ML VIAL SUBQ PRN ×3 (13:30→22:38)
--- NOTE | 2020-07-25 19:30 | NUR ---
PT IN BED ON 15 LITERS N/C. NO S/S OF PAIN OR DISTRESS NOTED. V/S IN JIM;L LIMITS PT HAS NO S/S OF DISTRESS NOTED. ALL ORDERED PRECAUTIONS IN PLACE.
--- NOTE | 2020-07-25 19:39 | NUR ---
PATIENT RESTING COMFORTABLY, NO C/O PAIN OR DISCOMFORT. RESPIRATIONS ARE NON-LABORED. SKIN IS CLEAN, WARM AND DRY TO TOUCH. IV ACCESS IS PATIENT, IS DRY AND INTACT. BED IS LOCKED IN LOWEST POSITION, CALL LIGHT IN REACH. PATIENT ENDORSED TO MANAGER SHELL NURSE FOR CONTINOUS CARE.
[2020-07-25 20:00] VITALS: BP 93/55
--- NOTE | 2020-07-25 20:00 | NUR ---
PT IN BED RESTING HE IS 15 LITERS HIGH FLOW HUMIDIFIED AIR. PT FINGERSTICK IS 293 WILL GIVEN HUMALOG COVERAGE. PT HAS NO S/S OF PAIN OR DISTRESS NOTED. ALL ORDERED PRECAUTIONS IN PLACE. IV SITE INTACT AND SALINE LOCKED.
--- NOTE | 2020-07-25 21:00 | NUR ---
PT GIVEN 6 UNITS HUMALOG PER S/S.
--- NOTE | 2020-07-25 23:00 | NUR ---
PT IN BED RESTING WITH EYES CLOSED, HE CONTINUES ON 15 LITERS. HUMIDIFIED AIR. PT IN BED ASLEEP, NO S/S OF PAIN OR DISTRESS NOTED. ALL ORDERED PRECAUTIONS IN PLACE.
--- NOTE | 2020-07-26 03:00 | NUR ---
PT IN BED ASLEEP , RESPIRATIONS EVEN AND UNLABORED ON 15 LITERS NON REBREATHER. WILL CONTINUE TO MONITOR PT FOR SOB, AND ANY REQUESTED NEEDS.
[2020-07-26 04:00] VITALS: BP 107/65
--- NOTE | 2020-07-26 06:15 | NUR ---
FINGERSTICK IS 161, 2 UNITS OF HUMALOG GIVEN PER S/S.
[2020-07-26] MEDS: INSULIN LISPRO SLIDING SCALE 100 UNITS/ML VIAL SUBQ PRN ×4 (06:56→23:18)
[2020-07-26] MEDS: BLOOD GLUCOSE MONITORING 1 DEV DEV FS SCH ×4 (07:53→23:00)
--- NOTE | 2020-07-26 08:05 | NUR ---
RECEIVED PATIENT IN BED RESTING COMFORTABLY, PRESENTS: CALM, COOPERATIVE, AWAKE, ALERT, ABLE TO EXPRESS NEEDS. RESPIRATIONS ARE NON-LABORED ON OXYGEN SUPPORT. SKIN IS CLEAN, WARM AND DRY TO TOUCH. IV ACCESS IS PATENT, DRY AND INTACT. NO S/SX OF REDNESS/SWELLING. BED IS LOCKED IN LOWEST POSITION, CALL LIGHT IN REACH. NURSE WILL CONTINUE CARE AND MONITOR FOR CHANGES IN STATUS.
[2020-07-26] MEDS: DEXAMETHASONE 4 MG TAB PO SCH (08:43)
[2020-07-26] MEDS: ATORVASTATIN 20 MG TAB PO SCH (08:44)
[2020-07-26] MEDS: ENOXAPARIN 40 MG/0.4 ML SYR SUBQ SCH (08:44)
[2020-07-26 08:58] LABS: BASOPHILS % (AUTO) 0.7 % (0.0-2.0); EOSINOPHILS # (AUTO) 0.1 K/uL (0-0.4); EOSINOPHILS % (AUTO) 1.2 % (0.0-4.0); HEMATOCRIT 38.7 % (36-52); HEMOGLOBIN 13.6 g/dL (12.0-18.0); LYMPHOCYTES # (AUTO) 0.7 K/uL (2.0-11.5); LYMPHOCYTES % (AUTO) 9.5 % (20.5-51.1); MEAN CORPUSCULAR HEMOGLOBIN 31 pg (27-31); MEAN CORPUSCULAR HGB CONC 35 g/dL (33-37); MEAN CORPUSCULAR VOLUME 88.5 fL (80-94); MONOCYTES # (AUTO) 0.3 K/uL (0.8-1.0); MONOCYTES % (AUTO) 4.5 % (1.7-9.3); NEUTROPHILS # (AUTO) 5.8 K/uL (1.8-7.7); NEUTROPHILS % (AUTO) 84.1 % (42.2-75.2); PLATELET COUNT (AUTO) 372 K/uL (140-450); RED BLOOD CELL COUNT(AUTO) 4.37 MIL/uL (4.20-6.10); RED CELL DISTRIBUTION WIDTH 13.6 % (11.6-13.7); WHITE BLOOD COUNT (AUTO) 6.9 K/uL (4.8-10.8)
[2020-07-26] MEDS: FENOFIBRATE 48 MG TAB PO SCH (09:09)
[2020-07-26 09:29] LABS: ALBUMIN 2.4 g/dL (3.4-5.0); ANION GAP 10.6 (8-16); CARBON DIOXIDE 29.3 mmol/L (21-32); CREATININE 0.9 mg/dL (0.6-1.3); POTASSIUM 4.9 mmol/L (3.5-5.1); TOTAL BILIRUBIN 0.6 mg/dL (0.0-1.0)
--- NOTE | 2020-07-26 13:05 | NUR ---
PATIENT RESTING COMFORTABLY, WATCHING TELEVISION, NO C/O PAIN OR DISCOMFORT. RESPIRATIONS NON-LABORED. SKIN IS CLEAN, WARM AND DRY TO TOUCH. IV ACCESS IS PATENT, DRY AND INTACT. BED IS LOCKED IN LOWEST POSITION, CALL LIGHT IN REACH. NURSE WILL CONTINUE TO MONITOR FOR CHANGES IN STATUS.
[2020-07-26] MEDS: POLYETHYLENE GLYCOL 17 GM/PKT PO PRN (13:23)
--- NOTE | 2020-07-26 15:33 | NUR ---
Patient resting comfortably, watching television, calm and cooperative. Respirations non-labored, skin is clean, warm and dry to touch. IV access is patent, dry and intact. Bed is locked in lowest position, call light in reach.
[2020-07-26 15:46] VITALS: BP 96/58
--- NOTE | 2020-07-26 18:46 | NUR ---
PATIENT RESTING COMFORTABLY, NO C/O PAIN OR DISCOMFORT. RESPIRATIONS ARE NON-LABORED. SKIN IS CLEAN,W ARM AND DRY TO TOUCH. IV ACCESS IS PATENT, DRY AND INTACT. BED IS LOCKED IN LOWEST POSITION, CALL LIGHT IN REACH PATIENT ENDORSED TO DITCH DIGGER NURSE FOR CONTINUOS CARE.
[2020-07-27] MEDS: BLOOD GLUCOSE MONITORING 1 DEV DEV FS SCH ×3 (06:58→16:51)
[2020-07-27] MEDS: INSULIN LISPRO SLIDING SCALE 100 UNITS/ML VIAL SUBQ PRN ×3 (07:04→16:53)
--- NOTE | 2020-07-27 07:15 | NUR ---
RECEIVED REPORT FROM RISK AND INSURANCE MANAGER RN AT THIS TIME. PT IS STABLE SITTING UP IN BED WITH O2 MASK ON . IN NO DISTRESS DENIES DISTRESS. SAFETY MEASURES IN PLACE. WILL CONTINUE WITH POC.
[2020-07-27 08:00] VITALS: BP 93/64
[2020-07-27] MEDS: DEXAMETHASONE 4 MG TAB PO SCH (08:08)
[2020-07-27] MEDS: ATORVASTATIN 20 MG TAB PO SCH (08:08)
[2020-07-27] MEDS: FENOFIBRATE 48 MG TAB PO SCH (08:09)
[2020-07-27] MEDS: ENOXAPARIN 40 MG/0.4 ML SYR SUBQ SCH (08:10)
--- NOTE | 2020-07-27 08:15 | NUR ---
PT IS AWAKE AND ALERT ORIENTED X 4 COMMUNICATES EFFECTIVELY. ALL SCHEDULED MEDICATIONS GIVEN TOLERATED WELL. LUNG SOUNDS DIMINISHED ABD IS ROUND, SOFT AND NONTENDER WITH ACTIVE BS X 4. SKIN INTACT PT HAS IV TO LEFT HAND THAT IS NOT INTACT AND NOT PATENT WILL REPLACE. CALL LIGHT WITHIN REACH. SAFETY MEASURES IN PLACE. ALL NEEDS MET. WILL TITRATE O2 TOLERATED.
[2020-07-27 08:48] LABS: BASOPHILS % (AUTO) 0.5 % (0.0-2.0); EOSINOPHILS # (AUTO) 0.1 K/uL (0-0.4); EOSINOPHILS % (AUTO) 1.1 % (0.0-4.0); HEMATOCRIT 39.2 % (36-52); HEMOGLOBIN 13.6 g/dL (12.0-18.0); LYMPHOCYTES # (AUTO) 0.6 K/uL (2.0-11.5); LYMPHOCYTES % (AUTO) 10.3 % (20.5-51.1); MEAN CORPUSCULAR HEMOGLOBIN 31 pg (27-31); MEAN CORPUSCULAR HGB CONC 35 g/dL (33-37); MEAN CORPUSCULAR VOLUME 88.4 fL (80-94); MONOCYTES # (AUTO) 0.3 K/uL (0.8-1.0); MONOCYTES % (AUTO) 5.1 % (1.7-9.3); NEUTROPHILS # (AUTO) 5.1 K/uL (1.8-7.7); PLATELET COUNT (AUTO) 332 K/uL (140-450); RED BLOOD CELL COUNT(AUTO) 4.43 MIL/uL (4.20-6.10); RED CELL DISTRIBUTION WIDTH 13.6 % (11.6-13.7); WHITE BLOOD COUNT (AUTO) 6.1 K/uL (4.8-10.8)
[2020-07-27 08:59] LABS: ALBUMIN 2.5 g/dL (3.4-5.0); ANION GAP 11.8 (8-16); CARBON DIOXIDE 29.7 mmol/L (21-32); POTASSIUM 4.5 mmol/L (3.5-5.1); TOTAL BILIRUBIN 0.7 mg/dL (0.0-1.0)
--- NOTE | 2020-07-27 10:20 | NUR ---
PROVISION OF CARE PROVIDED. PT REQUESTING WATER. ALL NEEDS MET CALL LIGHT WITHIN REACH.
--- NOTE | 2020-07-27 12:00 | NUR ---
BS 327, 8 UNITS OF HUMALOG GIVEN PER SLIDING SCALE. ALL NEEDS MET.
--- NOTE | 2020-07-27 14:20 | NUR ---
PT LAYING RIGHT LATERAL SIDE TITRATED TO 11L TOLERATING WELL. WILL CONTINUE TO MONITOR.
--- NOTE | 2020-07-27 16:20 | NUR ---
BS 266 INSULIN 6UNIT HUMALOG GIVEN PER SLIDING SCALE
--- NOTE | 2020-07-27 16:24 | NUR ---
07/27/20 RD FOLLOW UP COMPLETED PLEASE REFER TO NUTRITION ASSESSMENT UNDER CARE ACTIVITY FOR ESTIMATED NUTRITIONAL NEEDS. 1. CONTINUE GROUND CCHO CARDIAC DIET TOLERATED 2. CONTINUE GLUCERNA BID 3. ENCOURAGE PO INTAKE >75% 4. RD TO FOLLOW-UP 3-5 DAYS, MODERATE RISK CANELO FARAH, RD
--- NOTE | 2020-07-27 18:42 | NUR ---
ROUNDS MADE ALL NEEDS MET.
--- NOTE | 2020-07-27 19:05 | NUR ---
PT ENDORSED TO [employer] SYSTEM OPERATOR RN FOR CONTINUITY OF CARE. PT IS STABLE AT THIS TIME WATCHING TV.
--- NOTE | 2020-07-27 19:30 | NUR ---
ROUNDING TIME: FIRST ROUNDS OBSERVATIONS: PT. LOCATION: PT IN BED PT. CONDITION: ALERT, O2 ON, NO SIGNS OF ANY DISTRESS
[2020-07-28] MEDS: BLOOD GLUCOSE MONITORING 1 DEV DEV FS SCH ×5 (00:10→21:27)
[2020-07-28] MEDS: INSULIN LISPRO SLIDING SCALE 100 UNITS/ML VIAL SUBQ PRN ×4 (00:18→21:24)
[2020-07-28] MEDS: ALBUTEROL SULFATE/IPRATROPIU 3 ML SOL IH SCH ×3 (07:00→19:00)
[2020-07-28] MEDS: BUDESONIDE 0.5 MG/2 ML NEBU INH SCH ×2 (07:30→19:30)
[2020-07-28 08:21] LABS: BASOPHILS % (AUTO) 0.2 % (0.0-2.0); EOSINOPHILS # (AUTO) 0.1 K/uL (0-0.4); EOSINOPHILS % (AUTO) 1.3 % (0.0-4.0); HEMATOCRIT 37.7 % (36-52); HEMOGLOBIN 13.4 g/dL (12.0-18.0); LYMPHOCYTES # (AUTO) 0.8 K/uL (2.0-11.5); MEAN CORPUSCULAR HEMOGLOBIN 32 pg (27-31); MEAN CORPUSCULAR HGB CONC 36 g/dL (33-37); MEAN CORPUSCULAR VOLUME 88.7 fL (80-94); MONOCYTES # (AUTO) 0.4 K/uL (0.8-1.0); MONOCYTES % (AUTO) 5.8 % (1.7-9.3); NEUTROPHILS # (AUTO) 5.3 K/uL (1.8-7.7); NEUTROPHILS % (AUTO) 80.7 % (42.2-75.2); PLATELET COUNT (AUTO) 328 K/uL (140-450); RED BLOOD CELL COUNT(AUTO) 4.25 MIL/uL (4.20-6.10); RED CELL DISTRIBUTION WIDTH 13.6 % (11.6-13.7); WHITE BLOOD COUNT (AUTO) 6.6 K/uL (4.8-10.8)
[2020-07-28] MEDS: ATORVASTATIN 20 MG TAB PO SCH (08:27)
[2020-07-28] MEDS: DEXAMETHASONE 4 MG TAB PO SCH (08:28)
[2020-07-28] MEDS: FENOFIBRATE 48 MG TAB PO SCH (08:28)
[2020-07-28] MEDS: ENOXAPARIN 40 MG/0.4 ML SYR SUBQ SCH (08:28)
[2020-07-28 08:30] LABS: ALBUMIN 2.5 g/dL (3.4-5.0); CREATININE 0.9 mg/dL (0.6-1.3); POTASSIUM 4.2 mmol/L (3.5-5.1); TOTAL BILIRUBIN 0.6 mg/dL (0.0-1.0)
[2020-07-28 08:40] LABS: ANION GAP 7.5 (8-16); CARBON DIOXIDE 31.7 mmol/L (21-32)
--- NOTE | 2020-07-28 08:40 | NUR ---
SCHEDULED MORNING MEDICATIONS GIVEN. EDUCATION PROVIDED, PATIENT VERBALIZED UNDERSTANDING. DENIES PAIN OR DISCOMFORT AT THIS TIME. ON 10L HUMIDIFIER NC. SAFETY MEASURES IN PLACE, WILL CONTINUE TO MONITOR.
[2020-07-28] MEDS ORDERED: bisacodyL 5 MG TABEC PO PRN (13:45)
[2020-07-28] MEDS: DOCUSATE SODIUM 100 MG GELCAP PO PRN (17:30)
--- NOTE | 2020-07-28 19:30 | NUR ---
RECEIVED REPORT FORM RYLAN LALA PT IN STABLE CONDITION.
[2020-07-28 20:00] VITALS: BP 97/62
--- NOTE | 2020-07-28 20:45 | NUR ---
PT FINGERSTICK IS 334, PT RECEIVED 8 UNITS PER S/S. 02 IS RUNNING 10 LITERS HUMIDIFIED AIR VIA N/C. PT HAS NO C/O VOICED.
--- NOTE | 2020-07-29 | NUR ---
PT IN BED ASLEEP NO S/S OF PAIN OR DISTRESS NOTED.
--- NOTE | 2020-07-29 | NUR ---
ROUNDS DONE, PT IN BED SLEEPING V/S STABLE.
[2020-07-29] MEDS: ALBUTEROL SULFATE/IPRATROPIU 3 ML SOL IH SCH (01:00)
[2020-07-29 04:00] VITALS: BP 99/63
--- NOTE | 2020-07-29 06:00 | NUR ---
PT SITTING UP IN BED LAB AT BEDSIDE, FINGERSTICK IS 154.
--- NOTE | 2020-07-29 06:35 | NUR ---
PT GIVEN 2 UNITS HUMALOG PER S/S. NO S/S OF PAIN OR DISTRESS NOTED/.
[2020-07-29] MEDS: INSULIN LISPRO SLIDING SCALE 100 UNITS/ML VIAL SUBQ PRN ×3 (06:57→16:52)
[2020-07-29] MEDS: BLOOD GLUCOSE MONITORING 1 DEV DEV FS SCH ×4 (07:18→21:00)
[2020-07-29 08:00] VITALS: BP 106/62
[2020-07-29 09:13] LABS: ALBUMIN 2.7 g/dL (3.4-5.0); ANION GAP 12.8 (8-16); CARBON DIOXIDE 29.1 mmol/L (21-32); CREATININE 0.8 mg/dL (0.6-1.3); POTASSIUM 3.9 mmol/L (3.5-5.1); TOTAL BILIRUBIN 0.6 mg/dL (0.0-1.0)
[2020-07-29] MEDS: ATORVASTATIN 20 MG TAB PO SCH (09:32)
[2020-07-29] MEDS: DEXAMETHASONE 4 MG TAB PO SCH (09:33)
[2020-07-29] MEDS: FENOFIBRATE 48 MG TAB PO SCH (09:33)
[2020-07-29] MEDS: ENOXAPARIN 40 MG/0.4 ML SYR SUBQ SCH (09:36)
--- NOTE | 2020-07-29 12:42 | NUR ---
PATIENT SITTING IN BED WATCHING TV, DENIES PAIN OR DISCOMFORT AT THIS TIME. SAFETY MEASURES IN PLACE, WILL CONTINUE TO MONITOR.
--- NOTE | 2020-07-29 14:51 | NUR ---
PATIENT RESTING IN BED WATCHING WITH HIS CELL PHONE. DENIES SOB OR DISCOMFORT AT THIS TIME. WILL CONTINUE TO MONITOR.
[2020-07-29 16:00] VITALS: BP 104/69
--- NOTE | 2020-07-29 17:22 | NUR ---
PATIENT RESTING IN BED WITH NO ACUTE DISTRESS NOTED, DENIES PAIN OR DISCOMFORT. IN STABLE CONDITION. WILL CONTINUE TO MONITOR.
--- NOTE | 2020-07-29 19:55 | NUR ---
ENDORSED PATIENT TO LICENSE INSPECTOR NURSE FOR CONTINUITY OF CARE. PATIENT RESTING IN BED WITH 10 L NC WITH HUMIDIFIER, IN STABLE CONDITION.
[2020-07-29 20:00] VITALS: BP 82/52
[2020-07-30] MEDS: INSULIN LISPRO SLIDING SCALE 100 UNITS/ML VIAL SUBQ PRN ×6 (00:08→21:20)
[2020-07-30 04:00] VITALS: BP 99/62
--- NOTE | 2020-07-30 07:10 | NUR ---
HANDOFF REPORT RECEIVED FROM BILINGUAL HR GENERALIST RN. POC REVIEWED AND DISCUSSED. PT IS RESTING AND CALM. DENIES PAIN. NO SOB. AFEBRILE. CALL LIGHT WITHIN REACH.
[2020-07-30 08:00] LABS: ALBUMIN 2.6 g/dL (3.4-5.0); ANION GAP 9.9 (8-16); CARBON DIOXIDE 31.4 mmol/L (21-32); CREATININE 0.9 mg/dL (0.6-1.3); POTASSIUM 4.3 mmol/L (3.5-5.1); TOTAL BILIRUBIN 0.6 mg/dL (0.0-1.0)
[2020-07-30] MEDS: BLOOD GLUCOSE MONITORING 1 DEV DEV FS SCH ×4 (08:16→21:00)
[2020-07-30] MEDS: ENOXAPARIN 40 MG/0.4 ML SYR SUBQ SCH (09:22)
[2020-07-30] MEDS: ATORVASTATIN 20 MG TAB PO SCH (09:28)
[2020-07-30] MEDS: FENOFIBRATE 48 MG TAB PO SCH (09:28)
[2020-07-30] MEDS: DEXAMETHASONE 4 MG TAB PO SCH (09:29)
--- NOTE | 2020-07-30 12:00 | NUR ---
PT IS RESTING, EYES CLOSED. DENIES DISCOMFORT OR PAIN. WILL CONTINUE TO MONITOR.
[2020-07-30 16:00] VITALS: BP 99/54
--- NOTE | 2020-07-30 19:28 | NUR ---
ENDORSED PATIENT TO GENERAL MAINTENANCE MECHANIC RN. POC REVIEWED. NO CHANGES OF CONDITION.
--- NOTE | 2020-07-30 19:30 | NUR ---
RECEIVED REPORT AT BEDSIDE FOR CONTINUITY OF CARE, PT IN STABLE CONDITION.
[2020-07-30 20:00] VITALS: BP 109/67
--- NOTE | 2020-07-30 20:00 | NUR ---
PT LYING IN BED AOX4 WITH 8 LITERS N/C IN PLACE. PT FINGERSTICK IS 333, WILL ADMINISTER HUMALOG PER S/S. NO C/O VOICED AT THIS TIME.
--- NOTE | 2020-07-30 21:00 | NUR ---
PT GIVEN 8 UNITS HUMALOG PER S/S. PT VERBALIZED UNDERSTANDING. ALL REQUESTED NEEDS ATTENDED BY STAFF.
--- NOTE | 2020-07-30 23:00 | NUR ---
PT SITTING UP AWAKE IN BED 02 RUNNING 8 LITERS PT HAS NO S/S OF PAIN OR DISTRESS NOTED,. ALL REQUESTED NEEDS ATTENDED BY STAFF AND ALL [place] PRECAUTIONS IN PLACE.
--- NOTE | 2020-07-31 02:00 | NUR ---
PT IN BED ASLEEP NO S/S OF PAIN OR DISTRESS NOTED O2 AT 8 LITERS VIA N/C.
[2020-07-31 04:00] VITALS: BP 119/58
[2020-07-31] MEDS: INSULIN LISPRO SLIDING SCALE 100 UNITS/ML VIAL SUBQ PRN ×4 (06:49→19:48)
[2020-07-31 06:56] LABS: ALBUMIN 2.7 g/dL (3.4-5.0); ANION GAP 10.4 (8-16); CARBON DIOXIDE 30.6 mmol/L (21-32); CREATININE 0.8 mg/dL (0.6-1.3); TOTAL BILIRUBIN 0.5 mg/dL (0.0-1.0)
[2020-07-31] MEDS: ALBUTEROL SULFATE/IPRATROPIU 3 ML SOL IH SCH ×2 (07:00→13:00)
[2020-07-31] MEDS: BLOOD GLUCOSE MONITORING 1 DEV DEV FS SCH ×4 (07:12→19:38)
--- NOTE | 2020-07-31 07:21 | NUR ---
PT FINGERSTICK IS 200, HE WAS GIVEN 2 UNITS HUMALOG COVERAGE. ALL REQUESTED NEEDS ATTENDED BY STAFF, ALL ORDERED PRECAUTIONS IN PLACE.
[2020-07-31] MEDS: BUDESONIDE 0.5 MG/2 ML NEBU INH SCH (07:30)
[2020-07-31] MEDS: DEXAMETHASONE 4 MG TAB PO SCH (09:18)
[2020-07-31] MEDS: FENOFIBRATE 48 MG TAB PO SCH (09:18)
[2020-07-31] MEDS: ATORVASTATIN 20 MG TAB PO SCH (09:18)
[2020-07-31] MEDS: ENOXAPARIN 40 MG/0.4 ML SYR SUBQ SCH (09:19)
--- NOTE | 2020-07-31 09:20 | NUR ---
SCHEDULED MORNING MEDICATIONS GIVEN, EDUCATION PROVIDED, PATIENT IS ABLE TO AMBULATE TO THE RESTROOM. PATIENT IS ON 8L NC WITH HUMIDIFIER. NO ACUTE DISTRESS NOTED. SAFETY MEASURES IN PLACE, CALL LIGHT WITHIN REACH. WILL CONTINUE TO MONITOR.
--- NOTE | 2020-07-31 12:07 | NUR ---
6 UNITS OF HUMALOG GIVEN FOR BS LEVEL 297, EDUCATION PROVIDED. O2 SAT 88-91% WITH 8L NC WITH HUMIDIFIER. PATIENT IS CALM, DENIES PAIN OR SOB. SAFETY MEASURES IN PLACE, WILL CONTINUE TO MONITOR.
--- NOTE | 2020-07-31 13:23 | NUR ---
BREATHING TXS NOT GIVEN DUE TO RESPIRATORY PROTOCOL FOR COVID POSITIVE PTS.
--- NOTE | 2020-07-31 15:02 | NUR ---
OFFERED SUGAR FREE JELLO, PER PATIENT' REQUESTS. PATIENT SITTING IN THE CHAIR WITH 8L NC WITH HUMIDIFIER. NO ACUTE DISTRESS NOTED, WILL CONTINUE TO MONITOR.
[2020-07-31 16:00] VITALS: BP 102/71
--- NOTE | 2020-07-31 16:44 | NUR ---
8 UNITS OF HUMALOG GIVEN FOR BS LEVEL 334, EDUCATION PROVIDED, PATIENT SITTING IN CHAIR AND PLAY WITH HIS PHONE, NO ACUTE DISTRESS NOTED, WILL CONTINUE TO MONITOR.
--- NOTE | 2020-07-31 19:24 | NUR ---
ENDORSED PATIENT TO WOOL GRADER RN FOR CONTINUITY OF CARE, PATIENT IN STABLE CONDITION WITH 8L NC HUMIDIFIER.
--- NOTE | 2020-07-31 19:25 | NUR ---
RECEIVED REPORT FROM DAY LEIGHTON HAYES. PT AOX4 ON 8L N/C WITH HUMIDIFIER. NO S/S RESPIRATORY DISTRESS. NO C/O PAIN AT THIS TIME. IV SITE L HAND 22G, S.L. SAFETY MEASURES IN PLACE. CALL LIGHT WITHIN REACH. WILL CONTINUE TO MONITOR
--- NOTE | 2020-07-31 19:50 | NUR ---
BLOOD SUGAR 343, ADMINISTERED 8 UNITS INSULIN SUBQ, TOLERATED WELL. WILL CONTINUE TO MONITOR
[2020-07-31 20:00] VITALS: BP 102/56
--- NOTE | 2020-07-31 22:30 | NUR ---
PT SITTING IN THE CHAIR WITH 8L N/C IN PLACE. NO S/S ACUTE RESPIRATORY DISTRESS NOTED. WILL CONTINUE TO MONITOR
--- NOTE | 2020-08-01 00:30 | NUR ---
PT ASLEEP IN BED. NC IN PLACE. NO S/S ACUTE DISTRESS NOTED. WILL CONTINUE TO MONITOR
[2020-08-01 04:00] VITALS: BP 116/69
--- NOTE | 2020-08-01 04:16 | NUR ---
PT ASLEEP IN BED. N/C IN PLACE. NO S/S ACUTE DITRESS NOTED. WILL CONTINUE TO MONITOR
[2020-08-01] MEDS: BLOOD GLUCOSE MONITORING 1 DEV DEV FS SCH ×4 (05:35→20:25)
[2020-08-01] MEDS: INSULIN LISPRO SLIDING SCALE 100 UNITS/ML VIAL SUBQ PRN ×4 (05:58→20:32)
--- NOTE | 2020-08-01 06:03 | NUR ---
GAVE 4 UNITS INSULIN SUBQ FOR PT BLOOD SUGAR 214, TOLERATED WELL. WILL CONTINUE TO MONITOR
[2020-08-01 06:52] LABS: ALBUMIN 2.6 g/dL (3.4-5.0); ANION GAP 7.4 (8-16); CARBON DIOXIDE 32.6 mmol/L (21-32); CREATININE 0.8 mg/dL (0.6-1.3); TOTAL BILIRUBIN 0.5 mg/dL (0.0-1.0)
--- NOTE | 2020-08-01 07:24 | NUR ---
ENDORSED PT TO DAY RN FOR CONTINUITY OF CARE. PT IS IN STABLE CONDITION
--- NOTE | 2020-08-01 07:25 | NUR ---
RECEIVED REPORT FROM MEDICAL ADMINISTRATIVE ASSISTANT RN FOR CONTINUITY OF CARE. PATIENT IN STABLE CONDITION WITH 8L NC WITH HUMIDIFIER. WEAN OFF THE O2 TO 6L. O2 SAT 92-93%. INFORMED PATIENT TO CALL IF EXPERIENCE ANY SOB. PATENT VERBALIZED UNDERSTANDING. SKIN WARM AND DRY, INTACT. ABDOMEN SOFT, NON TENDER. DENIES PAIN OR DISCOMFORT AT THIS TIME. PLAN OF CARE DISCUSSED. WILL CONTINUE TO MONITOR.
[2020-08-01 08:00] VITALS: BP 110/63
[2020-08-01] MEDS: FENOFIBRATE 48 MG TAB PO SCH (09:32)
[2020-08-01] MEDS: DEXAMETHASONE 4 MG TAB PO SCH (09:32)
[2020-08-01] MEDS: DOCUSATE SODIUM 100 MG GELCAP PO PRN (09:32)
[2020-08-01] MEDS: ATORVASTATIN 20 MG TAB PO SCH (09:32)
[2020-08-01] MEDS: ENOXAPARIN 40 MG/0.4 ML SYR SUBQ SCH (09:35)
--- NOTE | 2020-08-01 09:37 | NUR ---
SCHEDULED MEDICATIONS GIVEN, EDUCATION PROVIDED, PATIENT DENIES SOB ON 6L NC WITH HUMIDIFIER. SKIN DRY, INTACT, WARM TO TOUCH. SAFETY MEASURES IN PLACE, CALL LIGHT WITHIN REACH. WILL CONTINUE TO MONITOR.
--- NOTE | 2020-08-01 10:30 | NUR ---
PATIENT RESTING IN BED WITH RIGHT LATERAL POSITION. DENIES SOB OR TROUBLE BREATHING. ON 6L NC WITH HUMIDIFIER. NO ACUTE DISTRESS NOTED. WILL CONTINUE TO MONITOR.
[2020-08-01 12:00] VITALS: BP 102/58
--- NOTE | 2020-08-01 12:01 | NUR ---
ROOM AIR MRC247%. PLACED BACK ON 5LPM CANNULA
--- NOTE | 2020-08-01 14:58 | NUR ---
PATIENT'S O2 SAT 89-91% WITH 5L NC. ABLE TO AMBULATE IN THE ROOM AND PERFORM SELF HYGIENE. NO ACUTE DISTRESS NOTED. WILL CONTINUE TO MONITOR.
--- NOTE | 2020-08-01 15:30 | NUR ---
SNACK PROVIDED, PER PATIENT'S REQUESTS. PATIENT SITTING IN THE CHAIR. NO SOB OR RESPIRATORY DISTRESS NOTED. WILL CONTINUE TO MONITOR.
[2020-08-01 16:00] VITALS: BP 120/79
--- NOTE | 2020-08-01 17:11 | NUR ---
08/01/20 RD FOLLOW UP COMPLETED PLEASE REFER TO NUTRITION ASSESSMENT UNDER CARE ACTIVITY FOR ESTIMATED NUTRITIONAL NEEDS. 1. CONTINUE MECHANICAL SOFT CCHO CARDIAC DIET TOLERATED 2. CONTINUE GLUCERNA BID 3. ENCOURAGE PO INTAKE >75% 4. RD TO FOLLOW-UP 5-7 DAYS, LOW RISK CANELO FARAH, RD
--- NOTE | 2020-08-01 18:03 | NUR ---
RECEIVED A CALL FROM PATIENT'S OPHELIA [phone] STATING THAT HOME OXYGEN BEEN DELIVERED. INFORMED DR. RESENDEZ. PER WILL PUT DISCHARGE ORDER. WILL FOLLOW UP.
[2020-08-01] MEDS ORDERED: APIX5TAB PO (18:29)
--- NOTE | 2020-08-01 19:52 | NUR ---
DISCHARGE INSTRUCTIONS PROVIDED, INFORMED HOME O2 AND SAFETY, OXYGEN PRECAUTION. PATIENT VERBALIZED UNDERSTANDING. DISCHARGE PAPER SIGNED. PATIENT IS STABLE WITH 4-5 L NC WITH HUMIDIFIER. PATIENT WANTED TO HAVE BS CHECK BEFORE DISCHARGE, WILL ENDORSE TO CUSTOMER SERVICE CORRESPONDENCE CLERK RN.
--- NOTE | 2020-08-01 19:56 | NUR ---
ENDORSED PATIENT TO YOUTH AGENT RN FOR DISCHARGE. PATIENT'S OPHELIA IS ON THE WAY TO PICK THE PATIENT UP.
[2020-08-01 20:00] VITALS: BP 98/66
--- NOTE | 2020-08-01 20:39 | NUR ---
PT CHANGED INTO HOME CLOTHES. ALL BELONGINGS W PT. SALINE LOCK(S) D/C'D. HUMALOG SS INSULIN ADMINISTERED PER DOSING REGIMEN. PAPERWORK, ETC. ALREADY COMPLETED. PT AWAITING RIDE HOME.
--- NOTE | 2020-08-01 21:08 | NUR ---
PT BROUGHT VIA W/C TO MAIN LOBBY W O2 VIA NC AT 4L/MIN. W O2 RECEIVED PT AND BROUGHT PT TO PRIVATE AUTO W/O INCIDENT AND TOOK PT HOME. PT D/C'D IN STABLE CONDITION AND IN NO APPARENT DISTRESS. PT W ALL BELONGINGS WELL.
== END 2020-08-01 21:06 | disposition home or self-care (01) | DRG 177 ==
LOC: MED 13:53 → MTU 19:07
PROVIDERS: ADMIT Hospitalist; ATTEND Hospitalist
PROC: XW033E5 Introduction of Remdesivir Anti-infective into Peripheral Vein, Percutaneous Approach, New Technology Group 5 (ICD-10-PCS; 2020-07-17)
PROC: XW13325 Transfusion of Convalescent Plasma (Nonautologous) into Peripheral Vein, Percutaneous Approach, New Technology Group 5 (ICD-10-PCS; principal; 2020-07-19)
DX: U07.1 COVID-19 (principal); J96.01 Acute respiratory failure with hypoxia; J12.82 Pneumonia due to coronavirus disease 2019; D68.69 Other thrombophilia; E11.9 Type 2 diabetes mellitus without complications; Z99.81 Dependence on supplemental oxygen; Z79.84 Long term (current) use of oral hypoglycemic drugs
CPT/HCPCS: 36415; 36600; 71045; 80053; 82550; 82728; 82803; 82948; 83036; 83615; 84484; 85025; 85379; 86140; 86900; 86901; 87040; 87081; 87420; 87804; 93005; 96365; 96375; 99285; J0456; J0696; J1100; J1650; J7030; P9017; U0003